=== PATIENT | male | born 1955 | race Caucasian/White ===

== ENCOUNTER 2021-02-13 17:58 | Emergency (ER) | payer BC ==
[~2021-02-13] VITALS: Ht 180.3 cm; Wt 122.5 kg
[2021-02-13 18:47] LABS: BASOPHILS 0.4 % (0.0-2.0); EOSINOPHILS 2.1 % (0.0-3.0); HEMATOCRIT 46.3 % (42.0-52.0); HEMOGLOBIN 15.4 gm/dL (14.0-18.0); LYMPHOCYTES 16.4 % (24.0-44.0); MCH 30.2 pg (26.0-34.0); MCHC 33.2 g/dL (28.0-37.0); MCV 91.1 fL (80.0-100.0); PLATELET COUNT 252 thou/uL (150-400); POLYS 74.1 % (36.0-66.0); RBC 5.08 mil/uL (4.50-6.00); RDW 13.1 % (10.5-14.5); WBC 8.2 thou/uL (4.0-11.0)
[2021-02-13 18:55] LABS: URINE BILIRUBIN NEGATIVE (Negative); URINE BLOOD NEGATIVE (Negative); URINE CLARITY CLEAR; URINE COLOR YELLOW; URINE GLUCOSE-RANDOM* NEGATIVE (Negative); URINE KETONES NEGATIVE (Negative); URINE LEUKOCYTES-REFLEX NEGATIVE (Negative); URINE NITRITE-REFLEX NEGATIVE (Negative); URINE PROTEIN (DIPSTICK) NEGATIVE (Negative); URINE UROBILINOGEN 0.2 E.U./dl (0.2-1.0)
[2021-02-13] MEDS ORDERED: METFORMIN HCL500 M1 PO (18:55)
[2021-02-13] MEDS ORDERED: LOSARTAN POTAS100 MG PO (18:56)
[2021-02-13] MEDS ORDERED: ATORVASTATIN CA10 MG PO (18:56)
[2021-02-13] MEDS ORDERED: NORVASC5 MG PO (18:57)
[2021-02-13] MEDS ORDERED: VITAMIN C100 MG PO (18:58)
[2021-02-13] MEDS ORDERED: ASA81BEC PO (18:58)
[2021-02-13] MEDS ORDERED: FISH OIL 1,0001 EAC9 PO (18:59)
[2021-02-13] MEDS ORDERED: ALLEGRA ALLERG180 MG PO (18:59)
[2021-02-13] MEDS ORDERED: QUERCETIN DIHYDR1 GM (19:00)
[2021-02-13 19:14] LABS: CALCIUM 8.8 mg/dL (8.5-10.1); CREATININE 1.3 mg/dL (0.7-1.3); POTASSIUM 4.2 mmol/L (3.5-5.1)
[2021-02-13 19:21] LABS: ALBUMIN 3.9 g/dL (3.4-5.0); TOTAL BILIRUBIN 0.9 mg/dL (0.2-1.0); TOTAL PROTEIN 7.1 g/dL (6.4-8.2)
[2021-02-13 19:48] VITALS: BP 137/82
== END 2021-02-13 19:58 | disposition home or self-care (01) ==
LOC: ER 17:58
PROVIDERS: Emergency Medicine
DX: E11.649 Type 2 diabetes mellitus with hypoglycemia without coma (principal); Z79.82 Long term (current) use of aspirin; Z79.899 Other long term (current) drug therapy; Z88.0 Allergy status to penicillin